=== PATIENT | male | born 1990 | race Asian ===

== ENCOUNTER 2018-08-24 15:16 | Emergency (ER) | payer OTHER ==
[~2018-08-24] VITALS: Ht 167.6 cm; Wt 63.5 kg
[2018-08-24 17:18] VITALS: BP 120/78; TEMP 98
== END 2018-08-24 17:18 | disposition home or self-care (01) ==
LOC: ED 15:16
DX: J02.9 Acute pharyngitis, unspecified (principal); J40 Bronchitis, not specified as acute or chronic
CPT/HCPCS: 87502; 87651; 99283

== ENCOUNTER 2018-08-28 13:13 | Emergency (ER) | payer OTHER ==
[~2018-08-28] VITALS: Ht 167.6 cm; Wt 63.5 kg
[2018-08-28 13:21] VITALS: BP 113/67; TEMP 98.1
== END 2018-08-28 14:20 | disposition home or self-care (01) ==
LOC: ED 13:13
DX: J06.9 Acute upper respiratory infection, unspecified (principal); R05 Cough
CPT/HCPCS: 99282; J2930

== ENCOUNTER 2019-02-22 04:58 | Outpatient (CLI) | payer OTHER | END 2019-02-22 05:04 | disposition short-term general hospital (02) | LOC: AMB 04:58 | DX: R07.89 Other chest pain (principal) | CPT/HCPCS: A0425; A0429 ==

== ENCOUNTER 2019-02-22 05:11 | Emergency (ER) | payer OTHER ==
[~2019-02-22] VITALS: Ht 167.6 cm; Wt 63.5 kg
[2019-02-22 05:55] LABS: PLATELET COUNT 280 K/uL (142-355)
[2019-02-22 06:04] LABS: POTASSIUM 3.8 mmol/L (3.6-5.2); SODIUM 138 mmol/L (136-145)
[2019-02-22 06:42] VITALS: BP 142/81; TEMP 97.7
== END 2019-02-22 06:43 | disposition home or self-care (01) ==
LOC: ED 05:11
PROVIDERS: Internal Medicine
DX: F41.8 Other specified anxiety disorders (principal); R07.9 Chest pain, unspecified; R00.2 Palpitations
CPT/HCPCS: 80053; 82550; 84484; 85027; 93005; 99283